=== PATIENT | female | born 1975 | race Caucasian/White ===

== ENCOUNTER 2017-09-29 17:51 | Emergency (ER) | payer OTHER ==
[~2017-09-29] VITALS: Ht 167.6 cm; Wt 79.4 kg
[2017-09-29 18:03] VITALS: BP 118/74
--- NOTE | 2017-09-29 18:05 | NUR ---
PT AMBULATED TO ER LOBBY. WAITING FOR OPEN ER BED.
--- NOTE | 2017-09-29 19:27 | NUR ---
PT AMBULATED TO BED 2
--- NOTE | 2017-09-29 19:36 | NUR ---
BIB SELF C/O DIZZINESS AND NAUSEA AFTER SEEING CHIROPRACTER TODAY AROUND 2PM. ABD IS ROUND, SOFT, NON TENDER ACTIVE BS X4. PT IS AWAKE AND ACTING APPROPRIATE. DENIES PAIN. NO PMH, NKDA
--- NOTE | 2017-09-29 19:48 | NUR ---
Dr. Thomas evaluating patient at bedside.
[2017-09-29] MEDS ORDERED: ASPIRIN 81 MG TAB.CHEW PO ONE (20:20)
--- NOTE | 2017-09-29 20:35 | NUR ---
Patient discharged with v/s stable. Written and verbal after care instructions given and explained. Patient alert, oriented and verbalized understanding of instructions. Ambulatory with steady gait. All questions addressed prior to discharge. ID band removed. Patient advised to follow up with PMD. Rx of ASPIRIN given. Patient educated on indication of medication including possible reaction and side effects. Opportunity to ask questions provided and answered.
[2017-09-29 21:13] VITALS: BP 120/70
== END 2017-09-29 20:35 | disposition home or self-care (01) ==
LOC: MED 17:51
DX: R42 Dizziness and giddiness (principal)
CPT/HCPCS: 99282

== ENCOUNTER 2017-12-07 20:47 | Emergency (ER) | payer OTHER ==
[~2017-12-07] VITALS: Ht 167.6 cm; Wt 79.4 kg
[2017-12-07 20:49] VITALS: BP 122/62
[2017-12-07] MEDS ORDERED: FLUORESCEIN OPTH STRIP 0.6 MG OP ONE (21:05)
[2017-12-07] MEDS ORDERED: TETRACAINE HCL/PF 0.5% OPTH 4 ML BTL OP ONE (21:05)
[2017-12-07 22:30] VITALS: BP 130/75
== END 2017-12-07 22:30 | disposition home or self-care (01) ==
LOC: MED 20:47
DX: H10.9 Unspecified conjunctivitis (principal); Z90.710 Acquired absence of both cervix and uterus
CPT/HCPCS: 99283

== ENCOUNTER 2018-04-03 22:38 | Emergency (ER) | payer OTHER ==
[~2018-04-03] VITALS: Ht 167.6 cm; Wt 87.8 kg
[2018-04-03 22:46] VITALS: BP 143/89
--- NOTE | 2018-04-03 23:50 | NUR ---
PATIENT LEFT WITHOUT BEING SEEN BY DR. MATHUR. NO FURTHER CARE PROVIDED FOR PATIENT. PT CALLED [phone] ([phone], [phone])
== END 2018-04-03 23:30 | disposition left against medical advice (07) ==
LOC: MED 22:38
DX: R05 Cough (principal); Z53.21 Procedure and treatment not carried out due to patient leaving prior to being seen by health care provider

== ENCOUNTER 2018-04-04 17:19 | Emergency (ER) | payer OTHER ==
[~2018-04-04] VITALS: Ht 167.6 cm; Wt 81.6 kg
[2018-04-04 17:25] VITALS: BP 124/73
--- NOTE | 2018-04-04 17:36 | NUR ---
PATIENT PRESENTS TO ED WITH C/O HACKING MOIST COUGH WITH NASAL/CHEST CONGESTION, BODYACHES NO ACCESSORY MUSCLE USE NOTED AT THIS TIME DENIES N/V/D; SKIN IS PINK/WARM/DRY; AAOX4 WITH EVEN AND STEADY GAIT; LUNGS CLEAR BL; HR EVEN AND REGULAR;PATIENT STATES PAIN OF 0/10 AT THIS TIME; VSS; PATIENT POSITIONED FOR COMFORT; HOB ELEVATED; BEDRAILS UP X2; BED DOWN. ER MD MADE AWARE OF PT STATUS.
--- NOTE | 2018-04-04 19:15 | NUR ---
Report received from Jihan QUINN. Pt kay, will continue to monitor.
[2018-04-04 19:35] VITALS: BP 144/83
--- NOTE | 2018-04-04 19:37 | NUR ---
Patient discharged with v/s stable. Written and verbal after care instructions given and explained. Patient alert, oriented and verbalized understanding of instructions. Ambulatory with steady gait. All questions addressed prior to discharge. ID band removed. Patient advised to follow up with PMD. Rx of Tylenol, promethizine and nasal spray given. Patient educated on indication of medication including possible reaction and side effects. Opportunity to ask questions provided and answered.
== END 2018-04-04 19:37 | disposition home or self-care (01) ==
LOC: MED 17:19
DX: J06.9 Acute upper respiratory infection, unspecified (principal)
CPT/HCPCS: 99283

== ENCOUNTER 2018-08-23 17:27 | Emergency (ER) | payer OTHER ==
[~2018-08-23] VITALS: Ht 170.2 cm; Wt 79.4 kg
[2018-08-23 17:37] VITALS: BP 136/90
--- NOTE | 2018-08-23 17:41 | NUR ---
PT TO WAIT IN ER LOBBY. VSS. PT AA0X4. RR EVEN AND UNLABORED.
--- NOTE | 2018-08-23 18:04 | NUR ---
PATIENT AMBULATED TO BED 4
--- NOTE | 2018-08-23 18:30 | NUR ---
C/O MIGRAINE X 3 WEEKS. HASNT TAKEN ANY MEDICATIONS TO RELIEVE PAIN TODAY. PAIN 8/10. BLURRY VISION UPON AWAKENING THIS AM PMH- CHRONIC MIGRAINES RX- DENIES
[2018-08-23] MEDS ORDERED: NACL 0.9% 1,000 ML IV ONE (18:40)
[2018-08-23] MEDS ORDERED: ACETAMINOPHEN 325 MG TAB PO ONE (18:40)
--- NOTE | 2018-08-23 18:44 | NUR ---
PT PROVIDED WTAER TO DRINK. URINE CUP AT THE BEDSIDE FOR SAMPLE COLLECTION.
--- NOTE | 2018-08-23 19:02 | NUR ---
PT WENT FOR CT WITH ASTRONOMY PROFESSOR.
--- NOTE | 2018-08-23 19:13 | NUR ---
REPORT GIVEN TO PM NURSE. PT STABLE.
--- NOTE | 2018-08-23 19:14 | NUR ---
ASSUMED CARE OF PT, FLUIDS RESUMED TO R AC, SITE BENIGN. PT ACTING APPROPRIALTY, SPEAKING IN CLEAR AND COMPLETE SENTENCES. BREATHING EQUAL AND UNLABORED. PT STATES 8/10 PAIN AT THIS TIME, STATES COPING.
[2018-08-23 19:17] LABS: APPEARANCE,URINE CLEAR (CLEAR); BILIRUBIN,URINE NEGATIVE (NEGATIVE); BLOOD, URINE NEGATIVE (NEGATIVE); COLOR,URINE YELLOW (YELLOW); LEUKOCYTE ESTERASE ,URINE NEGATIVE (NEGATIVE); NITRITE, URINE NEGATIVE (NEGATIVE); UGLUCOSE NEGATIVE (NEGATIVE)
[2018-08-23 19:18] LABS: BARBITURATE, URINE NEG. ng/ml (NEG <=200); BENZODIAZEPINE, URINE NEG. ng/mL (NEG <=200); CANNABINOID, URINE NEG. ng/mL (NEG <=50); COCAINE, URINE NEG. ng/mL (NEG <=300); OPIATE, URINE NEG. ng/mL (NEG <=2000); PHENCYCLIDINE SCREEN,URINE NEG. ng/mL (NEG <=25)
[2018-08-23] MEDS ORDERED: KETOROLAC 15 MG/ML VIAL IM ONE (19:35)
[2018-08-23] MEDS ORDERED: KETOROLAC 15 MG/ML VIAL IVP ONE (19:50)
[2018-08-23 20:50] VITALS: BP 128/81
--- NOTE | 2018-08-23 20:50 | NUR ---
Patient discharged with v/s stable. Written and verbal after care instructions given and explained. Patient alert, oriented and verbalized understanding of instructions. Ambulatory with steady gait. All questions addressed prior to discharge. ID band removed. Patient advised to follow up with PMD. Rx of IMITREX, MOTRIN, AND FLEXERIL given. Patient educated on indication of medication including possible reaction and side effects. Opportunity to ask questions provided and answered.
== END 2018-08-23 20:50 | disposition home or self-care (01) ==
LOC: MED 17:27
DX: G43.909 Migraine, unspecified, not intractable, without status migrainosus (principal)
CPT/HCPCS: 70450; 80305; 81003; 81025; 96374; 99284; J1885; J7030

== ENCOUNTER 2018-12-08 09:02 | Emergency (ER) | payer OTHER ==
[~2018-12-08] VITALS: Ht 167.6 cm; Wt 77.6 kg
[2018-12-08 09:12] VITALS: BP 123/80
--- NOTE | 2018-12-08 09:20 | NUR ---
C/O PRODUCTIVE COUGH X1 WEEK. DENIES N/V/D/FEVER. PT REPORTS TAKING ROBUTUSSIN WITH NO RELIEF . SKIN IS PINK/WARM/DRY; AAOX4 WITH EVEN AND STEADY GAIT; LUNGS CLEAR BL; HR EVEN AND REGULAR; PT DENIES ANY FEVER, CP, SOB AT THIS TIME; PATIENT STATES PAIN OF 6/10 AT THIS TIME; VSS; PATIENT POSITIONED FOR COMFORT; HOB ELEVATED; BEDRAILS UP X2; BED DOWN. ER MD MADE AWARE OF PT STATUS.
--- NOTE | 2018-12-08 09:23 | NUR ---
imaging technician at bedside.
--- NOTE | 2018-12-08 09:32 | NUR ---
Dr. Saldana evaluating patient at bedside.
[2018-12-08 10:00] VITALS: BP 121/80
--- NOTE | 2018-12-08 10:00 | NUR ---
Patient discharged with v/s stable. Written and verbal after care instructions given and explained. Patient alert, oriented and verbalized understanding of instructions. Ambulatory with steady gait. All questions addressed prior to discharge. ID band removed. Patient advised to follow up with PMD. Rx of SUDAFED,IBUPROFEN,TESSALON PERLES given. Patient educated on indication of medication including possible reaction and side effects. Opportunity to ask questions provided and answered.
== END 2018-12-08 10:00 | disposition home or self-care (01) ==
LOC: MED 09:02
DX: R05 Cough (principal); M79.10 Myalgia, unspecified site; R68.83 Chills (without fever); Z90.710 Acquired absence of both cervix and uterus
CPT/HCPCS: 71045; 99283; Q0092

== ENCOUNTER 2019-04-04 21:00 | Emergency (ER) | payer OTHER ==
[~2019-04-04] VITALS: Ht 167.6 cm; Wt 77.1 kg
[2019-04-04 21:05] VITALS: BP 132/77
--- NOTE | 2019-04-04 21:10 | NUR ---
PT AMBULATED TO BED WITH FAMILY
--- NOTE | 2019-04-04 21:15 | NUR ---
43 YEAR OLD FEMALE COMPLAINS OF PRODUCTIVE COUGH X 1 WEEK. PATIENT LUNGS CTABL, BREATHING EVEN AND UNLABORED, SPO2 97%, RR 18. PATIENT AOX4, SKIN WARM AND DRY. BED IN LOWEST POSITION, LOCKED, BED RAIL UPX1. TEMP 97.8 PMH - HYSTERECTOMY ALLERGIES - NKA
[2019-04-04] MEDS ORDERED: ALBUTEROL 0.083% 2.5 MG/3 ML NEBU INH ONE (21:55)
[2019-04-04 23:12] VITALS: BP 134/87
--- NOTE | 2019-04-04 23:14 | NUR ---
Patient discharged with v/s stable. Written and verbal after care instructions given and explained. Patient alert, oriented and verbalized understanding of instructions. Ambulatory with steady gait. All questions addressed prior to discharge. ID band removed. Patient advised to follow up with PMD. Rx of IBUPROFEN, FLONASE, MEDROL, TESSALON PERLES, VENTOLIN given. Patient educated on indication of medication including possible reaction and side effects. Opportunity to ask questions provided and answered.
== END 2019-04-04 23:12 | disposition home or self-care (01) ==
LOC: MED 21:00
DX: J20.9 Acute bronchitis, unspecified (principal); Z90.710 Acquired absence of both cervix and uterus
CPT/HCPCS: 71045; 94640; 99283; J7613; Q0092

== ENCOUNTER 2019-05-26 00:08 | Emergency (ER) | payer OTHER ==
[~2019-05-26] VITALS: Ht 167.6 cm; Wt 77.1 kg
[2019-05-26 00:09] VITALS: BP 147/80
--- NOTE | 2019-05-26 00:21 | NUR ---
PT AMBULATED TO BED #9.
--- NOTE | 2019-05-26 00:26 | NUR ---
43/F FROM TRIAGE FOR C/O COUGH AND SUBJECTIVE FEVER. PT REPORTS THAT SHE HAS POSITIVE COVID FAMILY MEMBERS BUT HAS HAD NO CONTACT WITH THEM. NO DISTRESS NOTED. LUNG SOUNDS CLEAR. COVID-[address], PT PLACED INTO ISOLATION ROOM AND PROVIDED WITH MASK.
--- NOTE | 2019-05-26 00:58 | NUR ---
REPORT GIVEN TO PRIMARY RNSANDRO. ALL CARE TRANSFERRED.
[2019-05-26] MEDS ORDERED: BENZONATATE 100 MG CAPLF PO STA (01:09)
--- NOTE | 2019-05-26 01:28 | NUR ---
XR AT BEDSIDE.
[2019-05-26 02:17] VITALS: BP 147/80
--- NOTE | 2019-05-26 02:17 | NUR ---
Patient discharged with v/s stable. Written and verbal after care instructions given and explained. Patient alert, oriented and verbalized understanding of instructions. Ambulatory with steady gait. All questions addressed prior to discharge. ID band removed. Patient advised to follow up with PMD. Rx of TESSALON PERLES, AND ALBUTEROL given. Patient educated on indication of medication including possible reaction and side effects. Opportunity to ask questions provided and answered.
== END 2019-05-26 02:17 | disposition home or self-care (01) ==
LOC: MED 00:08 → EEVIPCON 00:08 → MED 02:17
DX: R05 Cough (principal)
CPT/HCPCS: 71045; 99283; Q0092

== ENCOUNTER 2019-08-21 18:35 | Emergency (ER) | payer OTHER, SELFPAY ==
[~2019-08-21] VITALS: Ht 167.6 cm; Wt 78.0 kg
--- NOTE | 2019-08-21 19:27 | NUR ---
COVID-19 SWAB COLLECTED
[2019-08-21 19:30] VITALS: BP 121/79
--- NOTE | 2019-08-21 21:21 | NUR ---
PT LEFT FACILITY WITHOUT D/C PAPERWORK. UNABLE TO OBTAIN DISCHARGE VITALS.
[2019-08-21 21:22] VITALS: BP 121/79
== END 2019-08-21 21:21 | disposition home or self-care (01) ==
LOC: EEVIPCON 18:35 → MED 18:35
DX: U07.1 COVID-19 (principal)
CPT/HCPCS: 71045; 99284; U0003

== ENCOUNTER 2020-01-24 19:18 | Emergency (ER) | payer OTHER, SELFPAY ==
[~2020-01-24] VITALS: Ht 170.2 cm; Wt 63.5 kg
[2020-01-24 19:39] VITALS: BP 142/93
--- NOTE | 2020-01-24 19:50 | NUR ---
SEEN AND EXAMINED BY PA WITH ORDERS AND CARRIED OUT
--- NOTE | 2020-01-24 20:25 | NUR ---
SWAB DONE AND SENT TO LAB
[2020-01-24 20:26] VITALS: BP 122/78
--- NOTE | 2020-01-24 20:26 | NUR ---
Patient discharged with v/s stable. Written and verbal after care instructions given and explained. Patient alert, oriented and verbalized understanding of instructions. Ambulatory with steady gait. All questions addressed prior to discharge. ID band removed. Patient advised to follow up with PMD. Rx of IBUPROFEN 600MG, ZOFRAN 4 MG given. Patient educated on indication of medication including possible reaction and side effects. Opportunity to ask questions provided and answered.
== END 2020-01-24 20:26 | disposition home or self-care (01) ==
LOC: MED 19:18
DX: M79.10 Myalgia, unspecified site (principal); R51.9 Headache, unspecified; R11.2 Nausea with vomiting, unspecified; Z20.828 Contact with and (suspected) exposure to other viral communicable diseases
CPT/HCPCS: 99283; U0003

== ENCOUNTER 2021-03-01 15:09 | Emergency (ER) | payer OTHER, SELFPAY ==
[~2021-03-01] VITALS: Ht 167.6 cm; Wt 79.4 kg
[2021-03-01 15:38] VITALS: BP 108/66
[2021-03-01] MEDS ORDERED: ONDA-188 PO (15:54)
--- NOTE | 2021-03-01 16:00 | NUR ---
45/F BIB SELF WITH C/O FATIGUE, COUGH AND NAUSEA X7 DAYS. REPORTS DAUGHTER AT HOME HAS SAME SYMPTOMS. REPORTS TAKING TYLENOL AND BENADRYL FOR INTERMITTENT FEVERS. MEDHX: DENIES ALLERGIES: DENIES
--- NOTE | 2021-03-01 16:10 | NUR ---
NOVEL SWABBED AT THIS TIME
[2021-03-01 16:15] VITALS: BP 108/66
== END 2021-03-01 16:15 | disposition home or self-care (01) ==
LOC: MED 15:09
DX: B34.9 Viral infection, unspecified (principal); Z20.822 Contact with and (suspected) exposure to COVID-19; Z79.899 Other long term (current) drug therapy
CPT/HCPCS: 99283; U0003

== ENCOUNTER 2023-06-25 16:27 | Emergency (ER) | payer OTHER ==
[~2023-06-25] VITALS: Ht 167.6 cm; Wt 84.4 kg
[~2023-06-25 16:27] MED LIST: ONDA-188 PO
[2023-06-25 17:04] VITALS: BP 124/93; PULSE 72; RESP 18; TEMP 98.3; O2SAT 96
[2023-06-25] MEDS: KETOROLAC 30 MG/ML VIAL IM ONE (17:51)
[2023-06-25] MEDS: ONDANSETRON 4 MG/2 ML VIAL IVP ONE (17:52)
[2023-06-25 17:53] LABS: BASOPHILS # (AUTO) 0.1 K/uL (0.00-0.22); BASOPHILS % (AUTO) 0.8 % (0.0-2.0); EOSINOPHILS # (AUTO) 0.2 K/uL (0-0.4); EOSINOPHILS % (AUTO) 2.8 % (0.0-4.0); HEMATOCRIT 41.5 % (36-48); HEMOGLOBIN 14.3 g/dL (12.0-16.0); LYMPHOCYTES # (AUTO) 2.8 K/uL (2.5-16.5); LYMPHOCYTES % (AUTO) 38.9 % (20.5-51.1); MEAN CORPUSCULAR HEMOGLOBIN 30 pg (27-31); MEAN CORPUSCULAR HGB CONC 35 g/dL (33-37); MEAN CORPUSCULAR VOLUME 86.2 fL (80-94); MONOCYTES # (AUTO) 0.4 K/uL (0.8-1.0); MONOCYTES % (AUTO) 5.5 % (1.7-9.3); NEUTROPHILS # (AUTO) 3.8 K/uL (1.8-7.7); PLATELET COUNT (AUTO) 250 K/uL (140-450); RED BLOOD CELL COUNT(AUTO) 4.82 MIL/uL (4.20-5.40); RED CELL DISTRIBUTION WIDTH 14.1 % (11.6-13.7); WHITE BLOOD COUNT (AUTO) 7.3 K/uL (4.8-10.8)
[2023-06-25 17:55] LABS: APPEARANCE,URINE CLEAR (CLEAR); BILIRUBIN,URINE NEGATIVE (NEGATIVE); BLOOD, URINE NEGATIVE (NEGATIVE); COLOR,URINE YELLOW (YELLOW); LEUKOCYTE ESTERASE ,URINE NEGATIVE (NEGATIVE); NITRITE, URINE NEGATIVE (NEGATIVE); PROTEIN,URINE NEGATIVE (NEGATIVE); UGLUCOSE NEGATIVE (NEGATIVE); UROBILINOGEN,URINE 0.2 EU/dL (0.2 - 1)
[2023-06-25 18:03] LABS: ANION GAP 10.8 (8-16); CALCIUM 9.3 mg/dL (8.5-10.1); CREATININE 0.7 mg/dL (0.6-1.3); POTASSIUM 3.8 mmol/L (3.5-5.1)
[2023-06-25 18:14] LABS: ALBUMIN 3.8 g/dL (3.4-5.0); BILIRUBIN,DIRECT 0.1 mg/dL (0.0-0.3); TOTAL BILIRUBIN 0.4 mg/dL (0.0-1.0); TOTAL PROTEIN, SERUM 7.2 g/dL (6.4-8.2)
== END 2023-06-25 19:18 | disposition home or self-care (01) ==
LOC: MED 16:27
DX: R10.32 Left lower quadrant pain (principal); R51.9 Headache, unspecified; R11.0 Nausea; Z79.899 Other long term (current) drug therapy
CPT/HCPCS: 36415; 74176; 80048; 80076; 81003; 81025; 83690; 85025; 96372; 96374; 99285; J1885; J2405

== ENCOUNTER 2023-09-12 03:56 | Emergency (ER) | payer OTHER ==
[~2023-09-12] VITALS: Ht 167.6 cm; Wt 80.3 kg
[2023-09-12 04:00] VITALS: BP 136/86; PULSE 80; RESP 20; TEMP 97.3; O2SAT 97
[2023-09-12] MEDS: ACETAMINOPHEN 325 MG TAB PO ONE (04:50)
[2023-09-12] MEDS: KETOROLAC 30 MG/ML VIAL IM ONE (04:51)
[2023-09-12 05:01] LABS: FLU A ANTIGEN POSITIVE (NEGATIVE); FLU B ANTIGEN NEGATIVE (NEGATIVE)
[2023-09-12] MEDS ORDERED: NIRM1TAB9 PO (05:18)
[2023-09-12] MEDS ORDERED: FLONAS NS (05:18)
[2023-09-12] MEDS ORDERED: BENZ200C4 PO (05:22)
[2023-09-12 05:28] VITALS: BP 136/86; PULSE 80; RESP 20; TEMP 97.3
[2023-09-12 05:44] VITALS: O2SAT 97
== END 2023-09-12 05:28 | disposition home or self-care (01) ==
LOC: MED 03:56
DX: U07.1 COVID-19 (principal); J10.1 Influenza due to other identified influenza virus with other respiratory manifestations; Z98.51 Tubal ligation status; Z79.899 Other long term (current) drug therapy
CPT/HCPCS: 71045; 81025; 87426; 87804; 96372; 99284; J1885; Q0092